=== PATIENT | male | born 1985 ===

== ENCOUNTER 2024-10-30 21:49 | Emergency (ER) | payer SELFPAY ==
[2024-10-30 21:56] VITALS: BP 129/80; PULSE 80; RESP 20; TEMP 37.1; O2SAT 98; BMI 25.2
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
== END 2024-10-31 01:28 | disposition home or self-care (01) ==
LOC: SERX 23:43
PROVIDERS: Emergency Provider Emergency Medicine
DX: Z02.89 Encounter for other administrative examinations (principal); S09.90XA Unspecified injury of head, initial encounter; Y04.0XXA Assault by unarmed brawl or fight, initial encounter
CPT/HCPCS: 70450; 99284